=== PATIENT | male | born 1965 | race African-American/Black ===

== ENCOUNTER 2017-08-07 08:52 | Emergency (ER) | payer MEDICAID ==
[~2017-08-07] VITALS: Ht 167.6 cm; Wt 79.0 kg
[2017-08-07] MEDS ORDERED: MORPHINE SULFATE 4 MG/ML CPJ (NOT FOR IM USE) IV ONE (12:45)
[2017-08-07 15:35] VITALS: BP 122/78
== END 2017-08-07 16:07 | disposition home or self-care (01) ==
LOC: ER 13:18
DX: S16.1XXA Strain of muscle, fascia and tendon at neck level, initial encounter (principal); S50.01XA Contusion of right elbow, initial encounter; S80.11XA Contusion of right lower leg, initial encounter; S50.811A Abrasion of right forearm, initial encounter; S40.021A Contusion of right upper arm, initial encounter; S80.211A Abrasion, right knee, initial encounter; S80.01XA Contusion of right knee, initial encounter; S46.911A Strain of unspecified muscle, fascia and tendon at shoulder and upper arm level, right arm, initial encounter; E86.0 Dehydration; M19.011 Primary osteoarthritis, right shoulder; M75.91 Shoulder lesion, unspecified, right shoulder; R26.81 Unsteadiness on feet; M54.9 Dorsalgia, unspecified; F17.200 Nicotine dependence, unspecified, uncomplicated; F12.10 Cannabis abuse, uncomplicated; W17.89XA Other fall from one level to another, initial encounter; Y93.89 Activity, other specified; Y99.8 Other external cause status; Y92.89 Other specified places as the place of occurrence of the external cause; Z88.0 Allergy status to penicillin
CPT/HCPCS: 71010; 72040; 72070; 72100; 73030; 73060; 73090; 73100; 73502; 73590; 73630; 96374; 99284; J2270; Z7610

== ENCOUNTER 2023-05-05 22:06 | Emergency (ER) | payer OTHER, MEDICAID ==
[~2023-05-05] VITALS: Ht 167.6 cm; Wt 82.0 kg
[2023-05-05] MEDS ORDERED: LIDOCAINE 5% PATCH TOP SCH (23:30)
[2023-05-05] MEDS ORDERED: IBUPROFEN 400MG TABLET PO ONE (23:30)
[2023-05-05] MEDS ORDERED: IBUP-2028 MT (23:50)
[2023-05-05] MEDS ORDERED: LIDO1ADH71 TP (23:50)
[2023-05-05 23:57] VITALS: BP 158/98
== END 2023-05-05 23:57 | disposition home or self-care (01) ==
LOC: ER 22:06
DX: M54.9 Dorsalgia, unspecified (principal); G89.29 Other chronic pain; M19.90 Unspecified osteoarthritis, unspecified site; F12.90 Cannabis use, unspecified, uncomplicated; Z85.46 Personal history of malignant neoplasm of prostate
CPT/HCPCS: 99283